=== PATIENT | female | born 1965 | race Caucasian/White ===

== ENCOUNTER 2019-06-21 15:38 | Emergency (ER) | payer MEDICAID ==
--- NOTE | 2019-06-21 15:43 | ERPHSYRPT ---
- History of Present Illness Time Seen by Provider: 06/21/19 15:55 Source: patient Exam Limitations: no limitations Physician History: 54 y/o white female with chronic lbp issues. has moved from [place] to this area. went to [facility] within last 2 weeks. given naproxen and flexeril rx. out now. they did not help much. denies fall or trauma. does not have a pcp. drove herself and cannot get a ride. Timing/Duration: worse, other (chronic) Method of Injury: bending, lifting, twisted, turning Quality: aching Back Pain Location: lumbar spine, paraspinous muscles Back Pain Radiation: buttocks Severity of Pain-Max: mild Severity of Pain-Current: mild Modifying Factors: Improves With: movement Associated Symptoms: lower back pain, muscle spasms Previous symptoms: same symptoms as today Allergies/Adverse Reactions: No Known Drug Allergies Allergy (Unverified 06/21/19 16:02) - Review of Systems Constitutional: No Symptoms Eyes: No Symptoms Ears, Nose, & Throat: No Symptoms Respiratory: No Symptoms Cardiac: No Symptoms Abdominal/Gastrointestinal: No Symptoms Genitourinary Symptoms: No Symptoms Musculoskeletal: Back Pain, No Fall, No Injury Skin: No Symptoms Neurological: No Symptoms Psychological: No Symptoms Endocrine: No Symptoms Hematologic/Lymphatic: No Symptoms Immunological/Allergic: No Symptoms All Other Systems: Reviewed and Negative - Past Medical History Neurological History: No Pertinent History ENT History: No Pertinent History Cardiac History: No Pertinent History Respiratory History: No Pertinent History Endocrine Medical History: No Pertinent History Musculoskeletal History: Other (chronic lbp) GI Medical History: No Pertinent History History: No Pertinent History Psycho-Social History: No Pertinent History Female Reproductive Disorders: No Pertinent History - Past Surgical History Neuro Surgical History: No Pertinent History Cardiac: No Pertinent History Respiratory: No Pertinent History Gastrointestinal: No Pertinent History Genitourinary: No Pertinent History Musculoskeletal: No Pertinent History Female Surgical History: No Pertinent History - Nursing Vital Signs Nursing Vital Signs: Initial Vital Signs Temperature 97.4 F 06/21/19 15:53 Pulse Rate 99 H 06/21/19 15:53 Respiratory Rate 18 06/21/19 15:53 Blood Pressure 127/75 06/21/19 15:53 O2 Sat by Pulse Oximetry 95 06/21/19 15:53 Pain Scale Pain Intensity 8 - Physical Exam General Appearance: no apparent distress, alert, anxiety Eye Exam: PERRL/EOMI, eyes nml inspection Ears, Nose, Throat Exam: moist mucous membranes Neck Exam: normal inspection, non-tender, supple, full range of motion Respiratory Exam: No chest tenderness, No respiratory distress, No airway intact Pelvic Exam: not done Rectal Exam: not done Back Exam: normal inspection, normal range of motion, muscle spasm, No CVA tenderness, No vertebral tenderness Extremity Exam: normal inspection, normal range of motion, pelvis stable Neurologic Exam: alert, oriented x 3, cooperative, 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 II-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 nml as tested Skin Exam: normal color, warm, dry Lymphatic Exam: No adenopathy SpO2 Interpretation: normal O2 Delivery: Room Air - Course Nursing assessment & vital signs reviewed: Yes - Progress Progress: unchanged Counseled pt/family regarding: diagnosis, need for follow-up - Departure Departure Disposition: Home Clinical Impression: Chronic low back pain Condition: Stable Critical Care Time: No Additional Instructions: follow up primary doctor for further management Prescriptions: Carisoprodol 350 mg [Soma 350 mg] 350 mg PO Q8H PRN PRN #10 tablet PRN Reason: Muscle Spasms Prednisone 10 mg [Deltasone 10 mg] 10 mg PO TID #12 tablet
[2019-06-21 18:29] VITALS: BP 131/78; PULSE 78; O2SAT 96
== END 2019-06-21 18:48 | disposition home or self-care (01) ==
LOC: ED 15:38
DX: M54.5 Low back pain (principal); G89.29 Other chronic pain
CPT/HCPCS: 99283

== ENCOUNTER 2019-10-28 19:41 | Emergency (ER) | payer MEDICAID ==
[2019-10-28] MEDS ORDERED: Zofran 4 MG/2 ML VIAL ONE (20:06)
[2019-10-28] MEDS ORDERED: Sodium Chloride 0.9% 1000 ML 1,000 ML ONE (20:06)
[2019-10-28] MEDS ORDERED: solu-MEDROL 125 MG ONE (20:06)
[2019-10-28] MEDS ORDERED: ROCEPHIN 1 Gm-D5w 50 ml Bag** 1 G/50 ML IVPB IV ONE (20:06)
[2019-10-28] MEDS ORDERED: DUONEB 0.5-3 MG/3 ml Neb IH ONE (20:07)
[2019-10-28] MEDS: solu-MEDROL 125 MG IV ONE (20:08)
[2019-10-28] MEDS: Zofran 4 MG/2 ML VIAL IV ONE (20:08)
[2019-10-28] MEDS: ROCEPHIN 1 Gm-D5w 50 ml Bag** 1 G/50 ML IVPB IV STA (20:09)
[2019-10-28] MEDS: Sodium Chloride 0.9% 1000 ML 1,000 ML IV STA (20:09)
[2019-10-28] MEDS: DUONEB 0.5-3 MG/3 ml Neb IH ONE (20:10)
[2019-10-28 20:23] LABS: Lactic Acid 2.9 (0.4-2.0); VBG BASE EXCESS 3.4 (-2.0-2.0); VBG CARBOXYHEMOGLOBIN 2.7 % T HGB (0.0-6.9); VBG FIO2 32 %; VBG HCO3- 29.1 meq/L (22-28); VBG HEMOGLOBIN 15.2; VBG O2 SATURATION 40.4 (95-100); VBG PCO2 47 mm/Hg (42-55); VBG PO2 20 mm/Hg (25-40); VBG POTASSIUM 2.8 (3.5-5.1)
[2019-10-28] MEDS ORDERED: Klor Con 10 MEQ PO ONE (20:23)
[2019-10-28 20:41] LABS: Absolute Neutrophil Ct (ANC) 4.74 (1.4-6.9); BASOPHIL % 0.2 % (0.0-0.4); Basophil (Absolute #) 0.01 (0-0.4); Eosinophil % 0.2 % (0.00-5.0); Eosinophil (Absolute #) 0.01 (0-0.5); Hematocrit 42.7 % (35-47); Hemoglobin 14.6 gm/dl (12.0-16.0); Lymphocyte (Absolute #) 0.62 (1.0-4.6); Lymphocytes % 10.8 % (24.0-44.0); Mean Cell Volume 95.1 fl (78-100); Mean Corpuscular Hemoglobin 32.5 pg (26-32); Mean Corpuscular Hgb Concent. 34.2 g/dl (32-36); Mean Platelet Volume 10.8 fl (6-9.5); Monocyte (Absolute #) 0.37 (0.0-1.3); Monocytes % 6.4 % (0.0-12.0); Neutrophil % 82.4 % (36.0-66.0); Platelet Count 160 K/mm3 (150-450); Red Blood Count 4.49 M/mm3 (4.1-5.4); Red Cell Distribution Width 12.7 % (11.5-14.0); White Blood Count 5.8 K/mm3 (4.0-10.5)
[2019-10-28] MEDS ORDERED: K-LYTE 25 MEQ ONE (20:44)
[2019-10-28] MEDS: K-LYTE 25 MEQ PO ONE (20:45)
[2019-10-28 21:01] LABS: ALBUMIN 4.4 g/dL (3.5-5.0); ANION GAP 17.1 MEQ/L (5-15); BILIRUBIN,TOTAL 0.7 mg/dL (0.2-1.3); Creatinine 1 1.14 mg/dL (0.52-1.04); MAGNESIUM 2.2 mg/dL (1.6-2.3); NT PRO BNP 74.8 pg/mL (0-900); Total Protein 8.5 g/dL (6.3-8.2)
[2019-10-28 21:19] LABS: INR 1.18 (0.8-3.0); PROTIME 13.4 SECONDS (9.95-12.35); Potassium 2.8 mmol/L (3.5-5.1)
[2019-10-28 21:22] LABS: PTT 32.7 SECONDS (25.3-37.0)
[2019-10-28] MEDS ORDERED: Zithromax 500 MG/ 250 ML NaCl Premix 500 MG/250 ML IVPB IV ONE (21:25)
[2019-10-28] MEDS: Zithromax 500 MG/ 250 ML NaCl Premix 500 MG/250 ML IVPB IV STA (21:26)
[2019-10-28] MEDS ORDERED: Reglan 10 MG/2 ML ONE (21:39)
[2019-10-28] MEDS: Reglan 10 MG/2 ML IV ONE (21:40)
[2019-10-28 21:55] LABS: INFLUENZA A POSITIVE (NEGATIVE); INFLUENZA B NEGATIVE (NEGATIVE); RESPIRATORY SYNCTIAL VIRUS NEGATIVE (Negative)
[2019-10-28] MEDS: Tamiflu 75MG Capsule PO ONE (21:59)
[2019-10-28] MEDS ORDERED: Tamiflu 75MG Capsule PO ONE (21:59)
--- NOTE | 2019-10-28 22:24 | ERPHSYRPT ---
- History of Present Illness Time Seen by Provider: 10/28/19 19:50 Historian: patient Exam Limitations: no limitations Patient Subjective Stated Complaint: pt states that she has been sicks since , pt states that she woke up on vomiting, pt states that she has been coughing and short of breath since . pt states that she is unable to keep things down Triage Nursing Assessment: pt was wheeled into the er, pt is anxious, sob, c/o n /v, pt is has dry heeves, pt stating 90% on room air, pt put on 2L NC stating 98 %, pt is moaning and yelling out, pt states that she is having pain in thighs Physician History: patient is a 34-year-old female who had a D&C on 22 October return to the ER 1226 with pain primarily in the pelvis and left lower quadrant thorough workup then including a was negative. She comes back now with more pain she's had no nausea no vomiting no diarrhea no change in urination no fever chills or sweats. She has been somewhat lightheaded today. Timing/Duration: day(s) (6) Activities at Onset: none Quality: cramping Abdominal Pain Onset Location: [facility]Q Pain Radiation: no radiation Severity of Pain-Max: mild Severity of Pain-Current: mild Modifying Factors: Improves With: nothing Associated Symptoms: denies symptoms Previous symptoms: no prior history Allergies/Adverse Reactions: No Known Drug Allergies Allergy (Verified 10/28/19 20:01) Home Medications: Cyclobenzaprine HCl 5 mg PO BID PRN 10/28/19 [History] Meloxicam 15 mg PO DAILY 10/28/19 [History] Hx Tetanus, Diphtheria Vaccination/Date Given: Yes Hx Influenza Vaccination/Date Given: No Hx Pneumococcal Vaccination/Date Given: No - Review of Systems Constitutional: No Fever, No Chills Eyes: No Symptoms Ears, Nose, & Throat: No Symptoms Respiratory: No Cough, No Dyspnea Cardiac: No Chest Pain, No Edema, No Syncope Abdominal/Gastrointestinal: No Abdominal Pain, No Nausea, No Vomiting, No Diarrhea Genitourinary Symptoms: No Dysuria Musculoskeletal: No Back Pain, No Neck Pain Skin: No Rash Neurological: No Dizziness, No Focal Weakness, No Sensory Changes Psychological: No Symptoms Endocrine: No Symptoms All Other Systems: Reviewed and Negative - Past Medical History Pertinent Past Medical History: Yes Neurological History: No Pertinent History ENT History: No Pertinent History Cardiac History: No Pertinent History Respiratory History: No Pertinent History Endocrine Medical History: No Pertinent History Musculoskeletal History: Other GI Medical History: No Pertinent History History: No Pertinent History Psycho-Social History: Anxiety, Depression Female Reproductive Disorders: No Pertinent History - Past Surgical History Past Surgical History: Yes Neuro Surgical History: No Pertinent History Cardiac: No Pertinent History Respiratory: No Pertinent History Gastrointestinal: No Pertinent History Genitourinary: No Pertinent History Musculoskeletal: No Pertinent History Female Surgical History: No Pertinent History Other Surgical History: BLADDER TIED UP; KNEE - Social History Smoking Status: Current every day smoker How long have you smoked: 40 Exposure to second hand smoke: No Drug Use: none Patient Lives Alone: Yes - Nursing Vital Signs Nursing Vital Signs: Initial Vital Signs Temperature 98.2 F 10/28/19 19:46 Pulse Rate 54 L 10/28/19 19:46 Respiratory Rate 33 H 10/28/19 19:46 Blood Pressure 103/71 10/28/19 19:46 O2 Sat by Pulse Oximetry 90 L 10/28/19 19:46 Pain Scale Pain Intensity 5 - Physical Exam General Appearance: mild distress, alert Eye Exam: PERRL/EOMI, eyes nml inspection Ears, Nose, Throat Exam: normal ENT inspection, pharynx normal, moist mucous membranes Neck Exam: normal inspection, non-tender, supple, full range of motion Respiratory Exam: normal breath sounds, lungs clear, No respiratory distress Cardiovascular Exam: regular rate/rhythm, normal heart sounds Gastrointestinal/Abdomen Exam: soft, No tenderness, No mass Back Exam: normal inspection, normal range of motion, No CVA tenderness, No vertebral tenderness Extremity Exam: normal inspection, normal range of motion, pelvis stable Neurologic Exam: alert, oriented x 3, cooperative, normal mood/affect, nml cerebellar function, sensation nml, No motor deficits Skin Exam: normal color, warm, dry SpO2: 96 - Course Nursing assessment & vital signs reviewed: Yes - CT Exams Abdomen/Pelvis CT Interpretation: Other (there is decrease in the size of the endometrial cavity and some fecal stasis) Ordered Tests: Active Orders 24 hr Category Date Time Status Clean Catch Urine Specimen STAT Care 10/28/19 20:16 Active Oxygen-ED Only Nasal Cannula 2 lpm Care 10/28/19 19:52 Active CHEST 1 VIEW (PORTABLE) Stat Exams 10/28/19 19:53 Taken CHEST WITH CONTRAST [CT] Stat Exams 10/28/19 21:31 Ordered BLOOD CULTURE Stat Lab 10/28/19 20:57 Received CBC W DIFF Stat Lab 10/28/19 20:30 Completed CMP Stat Lab 10/28/19 20:30 Completed D-DIMER QUANTITATIVE Stat Lab 10/28/19 20:30 Completed Lactic Acid Stat Lab 10/28/19 19:52 Results MAGNESIUM Stat Lab 10/28/19 20:30 Completed NT PRO BNP Stat Lab 10/28/19 20:30 Completed PROTIME WITH INR Stat Lab 10/28/19 20:30 Completed PTT Stat Lab 10/28/19 20:30 Completed TROPONIN Q3H Lab 10/28/19 20:30 Completed TROPONIN Q3H Lab 10/28/19 23:00 Ordered TROPONIN Q3H Lab 10/29/19 02:00 Ordered TROPONIN Q3H Lab 10/29/19 05:00 Ordered TROPONIN Q3H Lab 10/29/19 08:00 Ordered UA W/RFX UR CULTURE Stat Lab 10/28/19 19:52 Uncollected Urine Triage Profile Stat Lab 10/28/19 Uncollected VENOUS BLOOD GAS Stat Lab 10/28/19 19:52 Results Peak Expiratory Flow Rate ONCE RT 10/28/19 20:25 Active Respiratory Therapy Assessment DAILY RT 10/28/19 20:25 Active Medication Summary Generic Name Dose Route Start Last Admin Trade Name Freq PRN Reason Stop Dose Admin Potassium Chloride 40 meq 10/29/19 10:00 Potassium Chl 40 Meq/30 Ml Oral Solution PO 11/28/19 09:59 DAILY JOVANY Discontinued Medications Generic Name Dose Route Start Last Admin Trade Name Freq PRN Reason Stop Dose Admin Albuterol/Ipratropium 3 ml 10/28/19 19:52 10/28/19 20:10 Duoneb 0.5-3 Mg/3 Ml Neb IH 10/28/19 19:53 3 ml STAT ONE Administration Albuterol/Ipratropium Confirm 10/28/19 20:07 Duoneb 0.5-3 Mg/3 Ml Neb Administered 10/28/19 20:08 Dose 3 ml IH .STK-MED ONE Ceftriaxone Sodium/Dextrose 1 g in 50 mls @ 100 mls/hr 10/28/19 19:52 22:16 Rocephin 1 Gm-D5w 50 Ml Bag IV 10/28/19 20:21 Infused STAT STA Infusion Sodium Chloride 1,000 mls @ 999 mls/hr 10/28/19 19:52 10/28/19 22:15 Sodium Chloride 0.9% 1000 Ml IV 10/28/19 20:52 Infused .Q1H1M STA Infusion Azithromycin 500 mg in 250 mls @ 250 mls/hr 10/28/19 19:52 10/28/19 21:26 Zithromax 500 Mg/ 250 Ml Nacl Premix IV 10/28/19 20:51 250 mls/hr STAT STA 250 mls/hr Administration Sodium Chloride Confirm 10/28/19 20:06 Sodium Chloride 0.9% 1000 Ml Administered 10/28/19 20:07 Dose 1,000 mls @ ud .ROUTE .STK-MED ONE Ceftriaxone Sodium/Dextrose Confirm 10/28/19 20:06 Rocephin 1 Gm-D5w 50 Ml Bag Administered 10/28/19 20:07 Dose 1 g in 50 mls @ ud IV .STK-MED ONE Azithromycin Confirm 10/28/19 21:25 Zithromax 500 Mg/ 250 Ml Nacl Premix Administered 10/28/19 21:26 Dose 500 mg in 250 mls @ ud IV .STK-MED ONE Methylprednisolone Sodium Succinate 80 mg 10/28/19 19:52 10/28/19 20:08 Solu-Medrol 125 Mg IV 10/28/19 19:53 80 mg STAT ONE Administration Methylprednisolone Sodium Succinate Confirm 10/28/19 20:06 Solu-Medrol 125 Mg Administered 10/28/19 20:07 Dose 125 mg .ROUTE .STK-MED ONE Metoclopramide HCl 10 mg 10/28/19 21:38 10/28/19 21:40 Reglan 10 Mg/2 Ml IV 10/28/19 21:39 10 mg STAT ONE Administration Metoclopramide HCl Confirm 10/28/19 21:39 Reglan 10 Mg/2 Ml Administered 10/28/19 21:40 Dose 10 mg .ROUTE .STK-MED ONE Ondansetron HCl 4 mg 10/28/19 19:55 10/28/19 20:08 Zofran 4 Mg/2 Ml Vial IV 10/28/19 19:56 4 mg STAT ONE Administration Ondansetron HCl Confirm 10/28/19 20:06 Zofran 4 Mg/2 Ml Vial Administered 10/28/19 20:07 Dose 4 mg .ROUTE .STK-MED ONE Oseltamivir Phosphate 75 mg 10/28/19 21:58 10/28/19 21:59 Tamiflu 75mg Capsule PO 10/28/19 21:59 75 mg STAT ONE Administration Oseltamivir Phosphate Confirm 10/28/19 21:59 Tamiflu 75mg Capsule Administered 10/28/19 22:00 Dose 75 mg PO .STK-MED ONE Potassium Bicarbonate 50 meq 10/28/19 20:43 10/28/19 20:45 K-Lyte 25 Meq PO 10/28/19 20:44 50 meq STAT ONE Administration Potassium Bicarbonate Confirm 10/28/19 20:44 K-Lyte 25 Meq Administered 10/28/19 20:45 Dose 50 meq .ROUTE .STK-MED ONE Potassium Chloride Confirm 10/28/19 20:23 Klor Con 10 Meq Administered 10/28/19 20:24 Dose 40 meq PO .STK-MED ONE Lab/Rad Data: Laboratory Result Diagrams 10/28/19 20:30 10/28/19 20:30 Laboratory Results 10/28/19 10/28/19 10/28/19 Range/Units 20:57 20:30 20:30 WBC (4.0-10.5) K/mm3 RBC (4.1-5.4) M/mm3 Hgb (12.0-16.0) gm/dl Hct (35-47) % MCV (78-100) fl MCH (26-32) pg MCHC (32-36) g/dl RDW (11.5-14.0) % Plt Count (150-450) K/mm3 MPV (6-9.5) fl Gran % (36.0-66.0) % Eos # (Auto) (0-0.5) Absolute Lymphs (auto) (1.0-4.6) Absolute Monos (auto) (0.0-1.3) Lymphocytes % (24.0-44.0) % Monocytes % (0.0-12.0) % Eosinophils % (0.00-5.0) % Basophils % (0.0-0.4) % Absolute Granulocytes (1.4-6.9) Basophils # (0-0.4) PT 13.4 H (9.95-12.35) SECONDS INR 1.18 (0.8-3.0) APTT 32.7 (25.3-37.0) SECONDS D-Dimer 622 H* (215-500) ng/mL pO2/FiO2 Ratio % VBG pH (7.32-7.42) VBG pCO2 at Pat Temp (42-55) mm/Hg VBG pO2 at Pat Temp (25-40) mm/Hg VBG HCO3 (22-28) meq/L VBG O2 Sat (Lucy) (95-100) VBG Base Excess (-2.0-2.0) VBG Hemoglobin VBG Carboxyhemoglobin (0.0-6.9) % T HGB POC Potassium (3.5-5.1) Sodium (137-145) mmol/L Potassium (3.5-5.1) mmol/L Chloride (98-107) mmol/L Carbon Dioxide (22-30) mmol/L Anion Gap (5-15) MEQ/L BUN (7-17) mg/dL Creatinine (0.52-1.04) mg/dL Estimated GFR ML/MIN Glucose (74-106) mg/dL Lactic Acid (0.4-2.0) Calcium (8.4-10.2) mg/dL Magnesium (1.6-2.3) mg/dL Total Bilirubin (0.2-1.3) mg/dL AST (14-36) U/L ALT (0-35) U/L Alkaline Phosphatase (38-126) U/L Troponin I < 0.012 (0.000-0.034) ng/mL NT-Pro-B Natriuret Pep (0-900) pg/mL Serum Total Protein (6.3-8.2) g/dL Albumin (3.5-5.0) g/dL Influenza Type A Ag POSITIVE (NEGATIVE) Influenza Type B Ag NEGATIVE (NEGATIVE) RSV (PCR) NEGATIVE (Negative) 10/28/19 10/28/19 10/28/19 Range/Units 20:30 20:30 19:52 WBC 5.8 (4.0-10.5) K/mm3 RBC 4.49 (4.1-5.4) M/mm3 Hgb 14.6 (12.0-16.0) gm/dl Hct 42.7 (35-47) % MCV 95.1 (78-100) fl MCH 32.5 H (26-32) pg MCHC 34.2 (32-36) g/dl RDW 12.7 (11.5-14.0) % Plt Count 160 (150-450) K/mm3 MPV 10.8 H (6-9.5) fl Gran % 82.4 H (36.0-66.0) % Eos # (Auto) 0.01 (0-0.5) Absolute Lymphs (auto) 0.62 L (1.0-4.6) Absolute Monos (auto) 0.37 (0.0-1.3) Lymphocytes % 10.8 L (24.0-44.0) % Monocytes % 6.4 (0.0-12.0) % Eosinophils % 0.2 (0.00-5.0) % Basophils % 0.2 (0.0-0.4) % Absolute Granulocytes 4.74 (1.4-6.9) Basophils # 0.01 (0-0.4) PT (9.95-12.35) SECONDS INR (0.8-3.0) APTT (25.3-37.0) SECONDS D-Dimer (215-500) ng/mL pO2/FiO2 Ratio 32 % VBG pH 7.40 (7.32-7.42) VBG pCO2 at Pat Temp 47 (42-55) mm/Hg VBG pO2 at Pat Temp 20 L (25-40) mm/Hg VBG HCO3 29.1 H* (22-28) meq/L VBG O2 Sat (Lucy) 40.4 L (95-100) VBG Base Excess 3.4 H (-2.0-2.0) VBG Hemoglobin 15.2 VBG Carboxyhemoglobin 2.7 (0.0-6.9) % T HGB POC Potassium 2.8 L* (3.5-5.1) Sodium 132 L (137-145) mmol/L Potassium 2.8 L* (3.5-5.1) mmol/L Chloride 90 L (98-107) mmol/L Carbon Dioxide 28 (22-30) mmol/L Anion Gap 17.1 H (5-15) MEQ/L BUN 38 H (7-17) mg/dL Creatinine 1.14 H (0.52-1.04) mg/dL Estimated GFR 52.8 ML/MIN Glucose 143 H (74-106) mg/dL Lactic Acid 2.9 H (0.4-2.0) Calcium 9.0 (8.4-10.2) mg/dL Magnesium 2.2 (1.6-2.3) mg/dL Total Bilirubin 0.70 (0.2-1.3) mg/dL AST 67 H (14-36) U/L ALT 23 (0-35) U/L Alkaline Phosphatase 57 (38-126) U/L Troponin I (0.000-0.034) ng/mL NT-Pro-B Natriuret Pep 74.8 (0-900) pg/mL Serum Total Protein 8.5 H (6.3-8.2) g/dL Albumin 4.4 (3.5-5.0) g/dL Influenza Type A Ag (NEGATIVE) Influenza Type B Ag (NEGATIVE) RSV (PCR) (Negative) - Progress Progress: pain not gone completely Discussed with : Prema - Departure Departure Disposition: Home Clinical Impression: Pelvic pain Condition: Stable Critical Care Time: No Referrals: DOCTOR,NO FAMILY [Primary Care Provider] - Prescriptions: Diclofenac Sodium 50 mg [Voltaren 50 mg] 50 mg PO Q8H 3 Days #9 tablet.ec
[2019-10-28] MEDS ORDERED: Sodium Chloride 0.9% 1000 ML 1,000 ML IV STA (23:27)
--- NOTE | 2019-10-29 01:00 | ERPHSYRPT ---
- History of Present Illness Time Seen by Provider: 10/28/19 19:50 Source: patient Exam Limitations: no limitations Patient Subjective Stated Complaint: pt states that she has been sicks since , pt states that she woke up on vomiting, pt states that she has been coughing and short of breath since . pt states that she is unable to keep things down Triage Nursing Assessment: pt was wheeled into the er, pt is anxious, sob, c/o n /v, pt is has dry heeves, pt stating 90% on room air, pt put on 2L NC stating 98 %, pt is moaning and yelling out, pt states that she is having pain in thighs Physician History: this copy of this patient's visit is a second attempt to document the visit. By mistake another patient's history and physical was dictated into Ms Theodore chart. This stanley is a 54-year-old patient who presents with shortness of breath she's been sick she says since time. She has a nasty smell and she blows her nose on room air oxygen saturation was 90% on 2 L she was 98% . She's had some nausea some vomiting shortness of breath and coughing. Timing/Duration: day(s) (3) Activities at Onset: none Severity of Dyspnea-Max: moderate Severity of Dyspnea-Current: moderate Possible Cause: occasional episodes Modifying Factors: Improves With: nothing Associated Symptoms: cough, fever, loss of appetite, chills Allergies/Adverse Reactions: No Known Drug Allergies Allergy (Verified 10/28/19 20:01) Hx Tetanus, Diphtheria Vaccination/Date Given: Yes Hx Influenza Vaccination/Date Given: No Hx Pneumococcal Vaccination/Date Given: No - Review of Systems Constitutional: Fever, Chills Eyes: No Symptoms Ears, Nose, & Throat: No Symptoms, Nose Congestion, Nose Discharge, Sinus Drainage Respiratory: Cough, Dyspnea, Dyspnea on Exertion (DOTSON) Cardiac: No Chest Pain, No Edema, No Syncope Abdominal/Gastrointestinal: Nausea, Vomiting, No Abdominal Pain, No Diarrhea Genitourinary Symptoms: No Symptoms, No Dysuria Musculoskeletal: Arthralgias, Joint Pain, Myalgias, No Back Pain, No Neck Pain Skin: No Rash Neurological: No Dizziness, No Focal Weakness, No Sensory Changes Psychological: No Symptoms Endocrine: No Symptoms All Other Systems: Reviewed and Negative - Past Medical History Pertinent Past Medical History: Yes Neurological History: No Pertinent History ENT History: No Pertinent History Cardiac History: No Pertinent History Respiratory History: No Pertinent History Endocrine Medical History: No Pertinent History Musculoskeletal History: Other GI Medical History: No Pertinent History History: No Pertinent History Psycho-Social History: Anxiety, Depression Female Reproductive Disorders: No Pertinent History - Past Surgical History Past Surgical History: Yes Neuro Surgical History: No Pertinent History Cardiac: No Pertinent History Respiratory: No Pertinent History Gastrointestinal: No Pertinent History Genitourinary: No Pertinent History Musculoskeletal: No Pertinent History Female Surgical History: No Pertinent History Other Surgical History: BLADDER TIED UP; KNEE - Social History Smoking Status: Current every day smoker How long have you smoked: 40 Exposure to second hand smoke: No Drug Use: none Patient Lives Alone: Yes - Nursing Vital Signs Nursing Vital Signs: Initial Vital Signs Temperature 98.2 F 10/28/19 19:46 Pulse Rate 54 L 10/28/19 19:46 Respiratory Rate 33 H 10/28/19 19:46 Blood Pressure 103/71 10/28/19 19:46 O2 Sat by Pulse Oximetry 90 L 10/28/19 19:46 Pain Scale Pain Intensity 5 - Physical Exam General Appearance: moderate distress, alert Eye Exam: PERRL/EOMI Neck Exam: normal inspection, supple Respiratory Exam: respiratory distress, crackles/rales, rhonchi, wheezing Cardiovascular/Chest Exam: normal heart sounds, regular rate/rhythm Abdominal/Gastrointestinal Exam: soft, No tenderness, No distention, No mass Extremity Exam: non-tender, normal range of motion, normal inspection, no calf tenderness, no pedal edema Neurologic Exam: alert, oriented x 3, cooperative, 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, sensation nml, No motor deficits Skin Exam: normal color, warm, No dry SpO2 Interpretation: normal SpO2: 100 - Radiology Exams Chest X-ray Interpretation: Interpreted by me, Negative - CT Exams Chest CT Interpretation: Other (essentially negative CT of the chest) Ordered Tests: Active Orders 24 hr Category Date Time Status Clean Catch Urine Specimen STAT Care 10/28/19 20:16 Active Oxygen-ED Only Nasal Cannula 2 lpm Care 10/28/19 19:52 Active CHEST 1 VIEW (PORTABLE) Stat Exams 10/28/19 19:53 Taken CHEST WITH CONTRAST [CT] Stat Exams 10/28/19 21:31 Taken BLOOD CULTURE Stat Lab 10/28/19 20:57 Received CBC W DIFF Stat Lab 10/28/19 20:30 Completed CMP Stat Lab 10/28/19 20:30 Completed D-DIMER QUANTITATIVE Stat Lab 10/28/19 20:30 Completed Lactic Acid Stat Lab 10/28/19 19:52 Completed Lactic Acid Stat Lab 10/28/19 23:30 Completed MAGNESIUM Stat Lab 10/28/19 20:30 Completed NT PRO BNP Stat Lab 10/28/19 20:30 Completed PROTIME WITH INR Stat Lab 10/28/19 20:30 Completed PTT Stat Lab 10/28/19 20:30 Completed TROPONIN Q3H Lab 10/28/19 20:30 Completed TROPONIN Q3H Lab 10/28/19 23:32 Completed TROPONIN Q3H Lab 10/29/19 02:00 Ordered TROPONIN Q3H Lab 10/29/19 05:00 Ordered TROPONIN Q3H Lab 10/29/19 08:00 Ordered UA W/RFX UR CULTURE Stat Lab 10/28/19 19:52 Uncollected Urine Triage Profile Stat Lab 10/28/19 Uncollected VENOUS BLOOD GAS Stat Lab 10/28/19 19:52 Completed Peak Expiratory Flow Rate ONCE RT 10/28/19 20:25 Active Respiratory Therapy Assessment DAILY RT 10/28/19 20:25 Active Medication Summary Generic Name Dose Route Start Last Admin Trade Name Freq PRN Reason Stop Dose Admin Potassium Chloride 40 meq 10/29/19 10:00 Potassium Chl 40 Meq/30 Ml Oral Solution PO 11/28/19 09:59 DAILY JOVANY Discontinued Medications Generic Name Dose Route Start Last Admin Trade Name Freq PRN Reason Stop Dose Admin Albuterol/Ipratropium 3 ml 10/28/19 19:52 10/28/19 20:10 Duoneb 0.5-3 Mg/3 Ml Neb IH 10/28/19 19:53 3 ml STAT ONE Administration Albuterol/Ipratropium Confirm 10/28/19 20:07 Duoneb 0.5-3 Mg/3 Ml Neb Administered 10/28/19 20:08 Dose 3 ml IH .STK-MED ONE Ceftriaxone Sodium/Dextrose 1 g in 50 mls @ 100 mls/hr 10/28/19 19:52 22:16 Rocephin 1 Gm-D5w 50 Ml Bag IV 10/28/19 20:21 Infused STAT STA Infusion Sodium Chloride 1,000 mls @ 999 mls/hr 10/28/19 19:52 10/28/19 22:15 Sodium Chloride 0.9% 1000 Ml IV 10/28/19 20:52 Infused .Q1H1M STA Infusion Azithromycin 500 mg in 250 mls @ 250 mls/hr 10/28/19 19:52 10/28/19 22:18 Zithromax 500 Mg/ 250 Ml Nacl Premix IV 10/28/19 20:51 Infused STAT STA Infusion Sodium Chloride Confirm 10/28/19 20:06 Sodium Chloride 0.9% 1000 Ml Administered 10/28/19 20:07 Dose 1,000 mls @ ud .ROUTE .STK-MED ONE Ceftriaxone Sodium/Dextrose Confirm 10/28/19 20:06 Rocephin 1 Gm-D5w 50 Ml Bag Administered 10/28/19 20:07 Dose 1 g in 50 mls @ ud IV .STK-MED ONE Azithromycin Confirm 10/28/19 21:25 Zithromax 500 Mg/ 250 Ml Nacl Premix Administered 10/28/19 21:26 Dose 500 mg in 250 mls @ ud IV .STK-MED ONE Sodium Chloride 1,000 mls @ 999 mls/hr 10/28/19 23:27 Sodium Chloride 0.9% 1000 Ml IV 10/29/19 00:27 .Q1H1M STA Methylprednisolone Sodium Succinate 80 mg 10/28/19 19:52 10/28/19 20:08 Solu-Medrol 125 Mg IV 10/28/19 19:53 80 mg STAT ONE Administration Methylprednisolone Sodium Succinate Confirm 10/28/19 20:06 Solu-Medrol 125 Mg Administered 10/28/19 20:07 Dose 125 mg .ROUTE .STK-MED ONE Metoclopramide HCl 10 mg 10/28/19 21:38 10/28/19 21:40 Reglan 10 Mg/2 Ml IV 10/28/19 21:39 10 mg STAT ONE Administration Metoclopramide HCl Confirm 10/28/19 21:39 Reglan 10 Mg/2 Ml Administered 10/28/19 21:40 Dose 10 mg .ROUTE .STK-MED ONE Ondansetron HCl 4 mg 10/28/19 19:55 10/28/19 20:08 Zofran 4 Mg/2 Ml Vial IV 10/28/19 19:56 4 mg STAT ONE Administration Ondansetron HCl Confirm 10/28/19 20:06 Zofran 4 Mg/2 Ml Vial Administered 10/28/19 20:07 Dose 4 mg .ROUTE .STK-MED ONE Oseltamivir Phosphate 75 mg 10/28/19 21:58 10/28/19 21:59 Tamiflu 75mg Capsule PO 10/28/19 21:59 75 mg STAT ONE Administration Oseltamivir Phosphate Confirm 10/28/19 21:59 Tamiflu 75mg Capsule Administered 10/28/19 22:00 Dose 75 mg PO .STK-MED ONE Potassium Bicarbonate 50 meq 10/28/19 20:43 10/28/19 20:45 K-Lyte 25 Meq PO 10/28/19 20:44 50 meq STAT ONE Administration Potassium Bicarbonate Confirm 10/28/19 20:44 K-Lyte 25 Meq Administered 10/28/19 20:45 Dose 50 meq .ROUTE .STK-MED ONE Potassium Chloride Confirm 10/28/19 20:23 Klor Con 10 Meq Administered 10/28/19 20:24 Dose 40 meq PO .STK-MED ONE Lab/Rad Data: Laboratory Result Diagrams 10/28/19 20:30 10/28/19 20:30 Laboratory Results 10/28/19 10/28/19 10/28/19 Range/Units 23:32 23:30 20:57 WBC (4.0-10.5) K/mm3 RBC (4.1-5.4) M/mm3 Hgb (12.0-16.0) gm/dl Hct (35-47) % MCV (78-100) fl MCH (26-32) pg MCHC (32-36) g/dl RDW (11.5-14.0) % Plt Count (150-450) K/mm3 MPV (6-9.5) fl Gran % (36.0-66.0) % Eos # (Auto) (0-0.5) Absolute Lymphs (auto) (1.0-4.6) Absolute Monos (auto) (0.0-1.3) Lymphocytes % (24.0-44.0) % Monocytes % (0.0-12.0) % Eosinophils % (0.00-5.0) % Basophils % (0.0-0.4) % Absolute Granulocytes (1.4-6.9) Basophils # (0-0.4) PT (9.95-12.35) SECONDS INR (0.8-3.0) APTT (25.3-37.0) SECONDS D-Dimer (215-500) ng/mL pO2/FiO2 Ratio % VBG pH (7.32-7.42) VBG pCO2 at Pat Temp (42-55) mm/Hg VBG pO2 at Pat Temp (25-40) mm/Hg VBG HCO3 (22-28) meq/L VBG O2 Sat (Lucy) (95-100) VBG Base Excess (-2.0-2.0) VBG Hemoglobin VBG Carboxyhemoglobin (0.0-6.9) % T HGB POC Potassium (3.5-5.1) Sodium (137-145) mmol/L Potassium (3.5-5.1) mmol/L Chloride (98-107) mmol/L Carbon Dioxide (22-30) mmol/L Anion Gap (5-15) MEQ/L BUN (7-17) mg/dL Creatinine (0.52-1.04) mg/dL Estimated GFR ML/MIN Glucose (74-106) mg/dL Lactic Acid 1.5 (0.4-2.0) Calcium (8.4-10.2) mg/dL Magnesium (1.6-2.3) mg/dL Total Bilirubin (0.2-1.3) mg/dL AST (14-36) U/L ALT (0-35) U/L Alkaline Phosphatase (38-126) U/L Troponin I < 0.012 (0.000-0.034) ng/mL NT-Pro-B Natriuret Pep (0-900) pg/mL Serum Total Protein (6.3-8.2) g/dL Albumin (3.5-5.0) g/dL Influenza Type A Ag POSITIVE (NEGATIVE) Influenza Type B Ag NEGATIVE (NEGATIVE) RSV (PCR) NEGATIVE (Negative) 10/28/19 10/28/19 10/28/19 Range/Units 20:30 20:30 20:30 WBC (4.0-10.5) K/mm3 RBC (4.1-5.4) M/mm3 Hgb (12.0-16.0) gm/dl Hct (35-47) % MCV (78-100) fl MCH (26-32) pg MCHC (32-36) g/dl RDW (11.5-14.0) % Plt Count (150-450) K/mm3 MPV (6-9.5) fl Gran % (36.0-66.0) % Eos # (Auto) (0-0.5) Absolute Lymphs (auto) (1.0-4.6) Absolute Monos (auto) (0.0-1.3) Lymphocytes % (24.0-44.0) % Monocytes % (0.0-12.0) % Eosinophils % (0.00-5.0) % Basophils % (0.0-0.4) % Absolute Granulocytes (1.4-6.9) Basophils # (0-0.4) PT 13.4 H (9.95-12.35) SECONDS INR 1.18 (0.8-3.0) APTT 32.7 (25.3-37.0) SECONDS D-Dimer 622 H* (215-500) ng/mL pO2/FiO2 Ratio % VBG pH (7.32-7.42) VBG pCO2 at Pat Temp (42-55) mm/Hg VBG pO2 at Pat Temp (25-40) mm/Hg VBG HCO3 (22-28) meq/L VBG O2 Sat (Lucy) (95-100) VBG Base Excess (-2.0-2.0) VBG Hemoglobin VBG Carboxyhemoglobin (0.0-6.9) % T HGB POC Potassium (3.5-5.1) Sodium 132 L (137-145) mmol/L Potassium 2.8 L* (3.5-5.1) mmol/L Chloride 90 L (98-107) mmol/L Carbon Dioxide 28 (22-30) mmol/L Anion Gap 17.1 H (5-15) MEQ/L BUN 38 H (7-17) mg/dL Creatinine 1.14 H (0.52-1.04) mg/dL Estimated GFR 52.8 ML/MIN Glucose 143 H (74-106) mg/dL Lactic Acid (0.4-2.0) Calcium 9.0 (8.4-10.2) mg/dL Magnesium 2.2 (1.6-2.3) mg/dL Total Bilirubin 0.70 (0.2-1.3) mg/dL AST 67 H (14-36) U/L ALT 23 (0-35) U/L Alkaline Phosphatase 57 (38-126) U/L Troponin I < 0.012 (0.000-0.034) ng/mL NT-Pro-B Natriuret Pep 74.8 (0-900) pg/mL Serum Total Protein 8.5 H (6.3-8.2) g/dL Albumin 4.4 (3.5-5.0) g/dL Influenza Type A Ag (NEGATIVE) Influenza Type B Ag (NEGATIVE) RSV (PCR) (Negative) 10/28/19 10/28/19 Range/Units 20:30 19:52 WBC 5.8 (4.0-10.5) K/mm3 RBC 4.49 (4.1-5.4) M/mm3 Hgb 14.6 (12.0-16.0) gm/dl Hct 42.7 (35-47) % MCV 95.1 (78-100) fl MCH 32.5 H (26-32) pg MCHC 34.2 (32-36) g/dl RDW 12.7 (11.5-14.0) % Plt Count 160 (150-450) K/mm3 MPV 10.8 H (6-9.5) fl Gran % 82.4 H (36.0-66.0) % Eos # (Auto) 0.01 (0-0.5) Absolute Lymphs (auto) 0.62 L (1.0-4.6) Absolute Monos (auto) 0.37 (0.0-1.3) Lymphocytes % 10.8 L (24.0-44.0) % Monocytes % 6.4 (0.0-12.0) % Eosinophils % 0.2 (0.00-5.0) % Basophils % 0.2 (0.0-0.4) % Absolute Granulocytes 4.74 (1.4-6.9) Basophils # 0.01 (0-0.4) PT (9.95-12.35) SECONDS INR (0.8-3.0) APTT (25.3-37.0) SECONDS D-Dimer (215-500) ng/mL pO2/FiO2 Ratio 32 % VBG pH 7.40 (7.32-7.42) VBG pCO2 at Pat Temp 47 (42-55) mm/Hg VBG pO2 at Pat Temp 20 L (25-40) mm/Hg VBG HCO3 29.1 H* (22-28) meq/L VBG O2 Sat (Lucy) 40.4 L (95-100) VBG Base Excess 3.4 H (-2.0-2.0) VBG Hemoglobin 15.2 VBG Carboxyhemoglobin 2.7 (0.0-6.9) % T HGB POC Potassium 2.8 L* (3.5-5.1) Sodium (137-145) mmol/L Potassium (3.5-5.1) mmol/L Chloride (98-107) mmol/L Carbon Dioxide (22-30) mmol/L Anion Gap (5-15) MEQ/L BUN (7-17) mg/dL Creatinine (0.52-1.04) mg/dL Estimated GFR ML/MIN Glucose (74-106) mg/dL Lactic Acid 2.9 H (0.4-2.0) Calcium (8.4-10.2) mg/dL Magnesium (1.6-2.3) mg/dL Total Bilirubin (0.2-1.3) mg/dL AST (14-36) U/L ALT (0-35) U/L Alkaline Phosphatase (38-126) U/L Troponin I (0.000-0.034) ng/mL NT-Pro-B Natriuret Pep (0-900) pg/mL Serum Total Protein (6.3-8.2) g/dL Albumin (3.5-5.0) g/dL Influenza Type A Ag (NEGATIVE) Influenza Type B Ag (NEGATIVE) RSV (PCR) (Negative) - Progress Progress: improved Air Movement: good Blood Culture(s) Obtained: No Antibiotics given: Yes - Departure Departure Disposition: Home Clinical Impression: Influenza A Condition: Stable Critical Care Time: No Referrals: DOCTOR,NO FAMILY [Primary Care Provider] - Additional Instructions: UPPER RESPIRATORY INFECTIONS 1. The signs and symptoms of a cold may last up to 10 days. These illnesses are due to viruses which are not treatable with antibiotics. 2. The following suggestions can aid in recovery and to minimize symptoms: A. Increase fluid intake. B. Acetaminophen or Ibuprofen as directed. C. Avoid smoking environments as this will increase the risk of developing pneumonia. D. For children, may use a cool mist vaporizer in the child's room. 3. Contact your Family Physician if you note: A. Persisten fever >103 for more than 3 days B. Breathing difficulty C. Productive cough of yellow/green sputum D. Illness greater than 7 days E. Persistent vomiting F. Stiff neck Prescriptions: RX: Albuterol 8 gm Mdi Hfa [Ventolin Hfa MDI] 8 gm IH Q4H #1 hfa.aer.ad Oseltamivir 75 mg [Tamiflu 75MG Capsule] 75 mg PO BID 5 Days #10 cap RX: Prednisone 10 mg [Deltasone 10 mg] 10 mg PO TID #12 tablet
[2019-10-29 01:19] LABS: Appearance CLEAR (CLEAR); Bilirubin NEGATIVE (NEGATIVE); Blood MODERATE Ery/ul (0-5); Epithelial Cells RARE /HPF (FEW); Glucose NEGATIVE (NEGATIVE); Ketones NEGATIVE (NEGATIVE); Leukocyte Esterase NEGATIVE (NEGATIVE); Mucus SLIGHT /HPF (NEGATIVE); Nitrite NEGATIVE (NEGATIVE); Protein,Urine Dip NEGATIVE (Negative); Specific Gravity 1.047 (1.005-1.025); Urobilinogen NEGATIVE mg/dL (0-1)
[2019-10-29 01:22] VITALS: BP 94/66; PULSE 91; O2SAT 94
[2019-10-29 01:26] LABS: Amphetamine,Urine NEGATIVE (NEGATIVE); Barbiturate,Urine NEGATIVE (NEGATIVE); Benzodiazepine,Urine NEGATIVE (NEGATIVE); Cocaine,Urine NEGATIVE (NEGATIVE); Methadone,Urine NEGATIVE (NEGATIVE); Opiate,Urine NEGATIVE (NEGATIVE); PCP,Urine NEGATIVE (NEGATIVE); THC,Urine NEGATIVE (NEGATIVE)
--- NOTE | 2019-10-29 09:01 | XRAY ---
Indication: Short of breath. Comparison: None Portable chest hyperinflated and clear. Heart is not enlarged. Bony thorax intact with minimal degenerative changes.
--- NOTE | 2019-10-29 09:01 | XRAY ---
Indication: Elevated d-dimer. Multiple contiguous axial images obtained through the chest using 80 cc Isovue 370 contrast and PE protocol. Comparison: None. There is good opacification of the pulmonary arteries. However mild respiration artifact limits evaluation of the more distal lobar and segmental branches especially near the lung bases. No obvious central pulmonary embolus. Heart is not enlarged. Aorta is normal in course and caliber. No pathologic mediastinal/hilar lymphadenopathy. Small hiatal hernia. Lungs demonstrates minimal pulmonary emphysema with scattered fibrosis/scarring bilaterally. No suspicious pulmonary mass, infiltrate, or effusion. Bony thorax demonstrates remote T7 superior endplate fracture with proximal 25% height loss. Limited upper abdomen including adrenal glands are unremarkable. Impression: 1. Pulmonary embolus evaluation limited by respiration artifact. No obvious central pulmonary embolus. 2. Incidental pulmonary emphysema, scattered fibrosis/scarring, hiatal hernia, and remote T7 endplate fracture. Comment: Preliminary interpretation was made by [facility]. No critical discrepancy. CT DI 7.89
[2019-10-29] MEDS ORDERED: POTASSIUM CHL 40 MEQ/30 ML ORAL SOLUTION PO SCH (10:00)
== END 2019-10-29 01:22 | disposition home or self-care (01) ==
LOC: ED 19:41
DX: J10.1 Influenza due to other identified influenza virus with other respiratory manifestations (principal)
CPT/HCPCS: 36415; 71045; 71260; 80053; 80307; 81001; 82805; 83605; 83735; 83880; 84484; 85025; 85379; 85610; 85730; 87040; 87631; 94150; 94640; 96360; 96365; 96367; 96374; 96375; 99284; J0456; J0696; J2405; J2930; A9270-GY

== ENCOUNTER 2020-06-18 19:07 | Emergency (ER) | payer OTHER ==
[2020-06-18] MEDS ORDERED: TORAdol 30 mg Injection IM ONE (19:47)
--- NOTE | 2020-06-18 19:47 | ERPHSYRPT ---
- History of Present Illness Time Seen by Provider: 06/18/20 19:30 Source: patient Exam Limitations: no limitations Patient Subjective Stated Complaint: pt states that she began to have back pain 3 days ago, pt states that she has chronic back that comes and goes, pt states that she took 2 muscle relaxants today with no relief, pt states that the pain is sharp in the middle of her back, pt states that she is out of her percocets and heating pad is not working Triage Nursing Assessment: pt ambulated into the er, pt is axo x3, c/o chronic back, states 10/10 pain, pt is anxious, grabbing back, restless, yelling out, no deformity present to back, no tenderness present with palpation, vitals wnl Physician History: Patient is a 55-year-old female presents to our ED with chronic intermittent thoracic spine spasms. Patient states that her current spasm started approximately 3 days ago. Patient states that her chronic back pain and recurrent spasms are very typical of her usual ongoing intermittent back spasms. No interval trauma no injuries no fever. No chest pain or shortness of breath. No numbness tingling or weakness. No recent back procedures. Symptoms are mild to moderate in intensity. Patient took her muscle relaxers and states that they did not help. Patient usually takes Percocets. Patient is in town from [place]. Patient states she ran out of her Percocet. We explained the patient that we cannot treat her chronic pain with narcotic. Patient agreed to Toradol and Decadron. Patient is otherwise healthy. She voiced no other complaints concerns at this time. Timing/Duration: day(s) (3 days ago) Method of Injury: other (No interval injury. Patient states that she develops intermittent chronic back spasms.) Quality: aching Back Pain Location: T-spine (9) Severity of Pain-Max: moderate Severity of Pain-Current: mild Modifying Factors: Improves With: pain medication Associated Symptoms: muscle spasms, No fever, No chills, No sweating, No urinary incontinence, No loss of bowel control, No constipation, No nausea, No vomiting, No problems urinating, No light-headedness, No dizziness, No numbness in legs/feet, No weakness, No sensory/motor loss, No tingling in legs/feet, No lo wer back pain Previous symptoms: same symptoms as today Allergies/Adverse Reactions: No Known Drug Allergies Allergy (Verified 06/18/20 19:14) Home Medications: Cyclobenzaprine HCl 5 mg PO BID 06/18/20 [History] Estrogen,Con/M-Progest Acet [Prempro 0.3 mg-1.5 mg Tablet] 1 tab PO DAILY 06/18/20 [History] Gabapentin 100 mg PO BID 06/18/20 [History] Meloxicam 15 mg PO DAILY 06/18/20 [History] Omeprazole 40 mg PO DAILY 06/18/20 [History] Oxycodone / APAP 10/325 mg [Oxycodone-Acetaminophen 10-325] 1 tab PO BID PRN 06/18/20 [History] Hx Tetanus, Diphtheria Vaccination/Date Given: Yes (unknown) Hx Influenza Vaccination/Date Given: No Hx Pneumococcal Vaccination/Date Given: No Travel Risk - International Travel Have you traveled outside of the country in past 3 weeks: No - Coronavirus Screening Are you exhibiting any of the following symptoms?: No Close contact with a COVID-19 positive Pt in past 14-21 Days: No - Review of Systems Constitutional: No Symptoms, No Fever, No Chills Eyes: No Symptoms Ears, Nose, & Throat: No Symptoms Respiratory: No Symptoms, No Cough, No Dyspnea Cardiac: No Symptoms, No Chest Pain, No Edema, No Syncope Abdominal/Gastrointestinal: No Symptoms, No Abdominal Pain, No Nausea, No Vomiting, No Diarrhea Genitourinary Symptoms: No Symptoms, No Dysuria Musculoskeletal: No Symptoms, No Back Pain, No Neck Pain Skin: No Symptoms, No Rash Neurological: No Symptoms, No Dizziness, No Focal Weakness, No Sensory Changes Psychological: No Symptoms Endocrine: No Symptoms Hematologic/Lymphatic: No Symptoms Immunological/Allergic: No Symptoms All Other Systems: Reviewed and Negative - Past Medical History Pertinent Past Medical History: Yes Neurological History: No Pertinent History ENT History: No Pertinent History Cardiac History: No Pertinent History Respiratory History: Bronchitis Endocrine Medical History: No Pertinent History Musculoskeletal History: Fractures, Osteoarthritis GI Medical History: GERD History: No Pertinent History Psycho-Social History: Anxiety, Depression Female Reproductive Disorders: No Pertinent History Other Medical History: PMHX: FX RIGHT WRIST, FX RIGHT ANKLE, GERD. SX HX: HX OF 2 ARTHROSCOPIC SURGERIES DUE TO "BONES RUBBING" - Past Surgical History Past Surgical History: Yes Neuro Surgical History: No Pertinent History Cardiac: No Pertinent History Respiratory: No Pertinent History Gastrointestinal: No Pertinent History Genitourinary: No Pertinent History Musculoskeletal: Orthopedic Surgery Female Surgical History: Section Other Surgical History: BLADDER TIED UP; KNEE - Social History Smoking Status: Current every day smoker How long have you smoked: 40 Exposure to second hand smoke: No Drug Use: none Patient Lives Alone: No - Female History Hx Now: No - Nursing Vital Signs Nursing Vital Signs: Initial Vital Signs Temperature 97.7 F 06/18/20 19:20 Pulse Rate 96 H 06/18/20 19:20 Respiratory Rate 22 06/18/20 19:20 Blood Pressure 107/81 06/18/20 19:20 O2 Sat by Pulse Oximetry 100 06/18/20 19:20 Pain Scale Pain Intensity [] 10 Pain Intensity 10 - Physical Exam General Appearance: no apparent distress, alert Eye Exam: PERRL/EOMI, eyes nml inspection Neck Exam: normal inspection, non-tender, supple, full range of motion, No meningismus, No midline tenderness Respiratory Exam: normal breath sounds, lungs clear, No respiratory distress Cardiovascular Exam: regular rate/rhythm, normal heart sounds Gastrointestinal Exam: soft, other (Hostile abdominal masses.), No tenderness, No mass Extremity Exam: normal inspection, normal range of motion, other (Midline thoracic spine tenderness. Pain worse with palpation and movement. 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 SpO2: 100 O2 Delivery: Room Air - Course Nursing assessment & vital signs reviewed: Yes - Radiology Exams T-Spine X-ray Interpretation: Interpreted by me (Osteopenia, scoliosis, disc space narrowing, degenerative arthritis. No acute pathology observed.) Ordered Tests: Active Orders 24 hr Category Date Time Status THORACOLUMBAR SPINE Stat Exams 06/18/20 19:49 Taken Medication Summary Discontinued Medications Generic Name Dose Route Start Last Admin Trade Name Freq PRN Reason Stop Dose Admin Dexamethasone Sodium Phosphate 6 mg 06/18/20 19:48 06/18/20 19:52 Decadron 10mg Inj. PO 06/18/20 19:49 6 mg STAT ONE Administration Dexamethasone Sodium Phosphate Confirm 06/18/20 19:51 Decadron 10mg Inj. Administered 06/18/20 19:52 Dose 10 mg .ROUTE .STK-MED ONE Ketorolac Tromethamine 60 mg 06/18/20 19:47 06/18/20 19:52 Toradol 30 Mg Injection IM 06/18/20 19:48 60 mg STAT ONE Administration Ketorolac Tromethamine Confirm 06/18/20 19:51 Toradol 30 Mg Injection Administered 06/18/20 19:52 Dose 60 mg .ROUTE .STK-MED ONE - Progress Progress: improved Progress Note: 06/18/20 20:55 Patient reassessed. Pain improved. Patient states he ready for discharge. X- ray negative for acute pathology. X-ray shows degenerative arthritis displaced narrowing osteopenia and scoliosis. Patient agrees to follow-up with her primary care doctor within 48 hours for evaluation. Patient voiced no other complaints at this time. Patient states he is ready for discharge. Counseled pt/family regarding: diagnosis, need for follow-up - Departure Departure Disposition: Home Clinical Impression: Degenerative arthritis of thoracic spine, Chronic pain, Scoliosis, Osteopenia Condition: Stable Critical Care Time: No Referrals: SUDHA AVELAR MD [Primary Care Provider] - Additional Instructions: Discharge/Care Plan EDMOND CHRISTIANSON was seen on 06/18/20 in the Emergency Room. The patient was counseled regarding Diagnosis,Lab results, Imaging studies, need for follow up and when to return to the Emergency Room. Prescriptions given: Discharge Note I have spoken with the patient and/or caregivers. I have explained the patient's condition, diagnosis and treatment plan based on the information available to me at this time. I have answered the patient's and/or caregiver's questions and addressed any concerns. The patient and/or caregivers have as good understanding of the patient's diagnosis, condition and treatment plan as can be expected at this point. The vital signs have been stable. The patient's condition is stable and appropriate for discharge from the emergency department. The patient will pursue further outpatient evaluation with the primary care physician or other designated or consulting physician as outlined in the discharge instructions. The patient and/or caregivers are agreeable to this plan of care and follow-up instructions have been explained in detail. The patient and/or caregivers have received these instruction. The patient/and or caregivers are aware that any significant change in condition or worsening of symptoms should prompt an immediate return to this or the closest emergency department or call 911.
[2020-06-18] MEDS ORDERED: DECADRON 10MG INJ. PO ONE (19:48)
[2020-06-18] MEDS ORDERED: TORAdol 30 mg Injection ONE (19:51)
[2020-06-18] MEDS ORDERED: DECADRON 10MG INJ. ONE (19:51)
[2020-06-18 21:08] VITALS: BP 119/95; PULSE 80; O2SAT 98
--- NOTE | 2020-06-19 08:54 | XRAY ---
Indication: Chronic back pain 17 years. No known injury. Comparison: None AP/lateral spine centered at thoracolumbar junction demonstrates minimal dextroscoliosis centered at T10, remote appearing T7 compression fracture with approximately 25% height loss, mild lower lumbar degenerative spondylosis, and scattered vascular calcifications including left renal artery. No other bony, articular, or soft tissue abnormalities.
== END 2020-06-18 21:08 | disposition home or self-care (01) ==
LOC: ED 19:07
DX: M47.894 Other spondylosis, thoracic region (principal); G89.29 Other chronic pain; F45.42 Pain disorder with related psychological factors; M41.9 Scoliosis, unspecified; M85.80 Other specified disorders of bone density and structure, unspecified site
CPT/HCPCS: 72080; 96372; 99284; J1100; J1885